=== PATIENT | female | born 1980 | race Caucasian/White ===

== ENCOUNTER 2017-05-09 17:06 | Emergency (ER) | payer OTHER ==
[~2017-05-09] VITALS: Ht 160 cm; Wt 79.7 kg
[~2017-05-09 17:06] MED LIST: AUGMENTIN875 MG PO; CELEXA10 MG PO; XANAX0.25 MG PO
[2017-05-09 18:53] VITALS: BP 115/67
== END 2017-05-09 18:55 | disposition home or self-care (01) ==
LOC: EME 17:06
DX: R06.02 Shortness of breath (principal); O26.893 Other specified pregnancy related conditions, third trimester; Z3A.33 33 weeks gestation of pregnancy
CPT/HCPCS: 99281; 99283

== ENCOUNTER 2017-06-20 04:42 | Outpatient (CLI) | payer OTHER ==
[~2017-06-20] VITALS: Ht 160 cm; Wt 81.0 kg
[2017-06-20 05:05] VITALS: BP 113/78
[2017-06-20 06:59] VITALS: BP 106/71
[2017-06-20] MEDS ORDERED: PRENATAL TABLE1 EAC3 PO (07:06)
[2017-06-20 08:17] VITALS: BP 104/61
[2017-06-21] MEDS ORDERED: IBUPROFEN800 MG PO (20:20)
== END 2017-06-20 09:47 | disposition home or self-care (01) ==
LOC: LDRP-OP 04:42 → 2WEST 04:43 → LDRP-OP 07-26 07:00
DX: O47.1 False labor at or after 37 completed weeks of gestation (principal); Z3A.39 39 weeks gestation of pregnancy; O99.820 Streptococcus B carrier state complicating pregnancy; O09.513 Supervision of elderly primigravida, third trimester
CPT/HCPCS: 59025; G0378

== ENCOUNTER 2017-06-20 23:48 | Inpatient (IN) | payer OTHER ==
[~2017-06-20] VITALS: Ht 162.6 cm; Wt 83.4 kg
[~2017-06-20 23:48] MED LIST changes: +PRENATAL TABLE1 EAC3 PO
[2017-06-21] VITALS (33 sets, daily range): BP systolic 92–129; BP diastolic 53–80
[2017-06-21 09:38] LABS: EOSINOPHIL (%) 0.3 % (0-5); HEMATOCRIT 35.7 % (36.0-46.0); IMMATURE GRANULOCYTE (%) 0.7 % (0.0-0.7); IMMATURE GRANULOCYTE COUNT 0.1 K/uL; INSTRUMENT ABS NEUTROPHIL CT 8.9 K/uL; LYMPHOCYTE COUNT 1.2 K/uL (1.0-2.8); MCH 31.4 PG (29.0-34.0); MCHC 33.9 G/DL (30.0-36.0); MCV 92.7 FL (83-99); MONOCYTE (%) 9.3 % (3-12); MONOCYTE COUNT 1.1 K/uL (0-0.8); NEUTROPHIL (%) 79.1 % (45-76); NEUTROPHIL COUNT 8.9 K/uL (1.8-6.4); PLATELET COUNT 172 K/uL (156-360); RBC DIS.WIDTH-CV 13.8 % (11.8-14.6); RBC DIS.WIDTH-SD 46.5 % (39-53); RED BLOOD COUNT 3.85 M/uL (3.80-5.20); WHITE BLOOD COUNT 11.2 K/uL (4.1-10.2)
[2017-06-21] MEDS ORDERED: IBUPROFEN800 MG PO (20:20)
[2017-06-22 14:47] VITALS: BP 102/59
[2017-06-23 07:10] VITALS: BP 100/56
== END 2017-06-23 13:11 | disposition home or self-care (01) | DRG 775 ==
LOC: LDRP-OP 23:48 → 2WEST 23:49 → LDRP-OP 07-26 09:58
PROVIDERS: Midwife
PROC: 3E033VJ Introduction of Other Hormone into Peripheral Vein, Percutaneous Approach (ICD-10-PCS; principal; 2017-06-21)
PROC: 0UQGXZZ Repair Vagina, External Approach (ICD-10-PCS; principal; 2017-06-21)
PROC: 3E0S3BZ Introduction of Anesthetic Agent into Epidural Space, Percutaneous Approach (ICD-10-PCS; principal; 2017-06-21)
PROC: 10E0XZZ Delivery of Products of Conception, External Approach (ICD-10-PCS; principal; 2017-06-21)
PROC: 00HU33Z Insertion of Infusion Device into Spinal Canal, Percutaneous Approach (ICD-10-PCS; principal; 2017-06-21)
PROC: 10907ZC Drainage of Amniotic Fluid, Therapeutic from Products of Conception, Via Natural or Artificial Opening (ICD-10-PCS; principal; 2017-06-21)
DX: O71.4 Obstetric high vaginal laceration alone (principal); O99.824 Streptococcus B carrier state complicating childbirth; O63.9 Long labor, unspecified; Z37.0 Single live birth; Z3A.39 39 weeks gestation of pregnancy; O69.1XX0 Labor and delivery complicated by cord around neck, with compression, not applicable or unspecified
CPT/HCPCS: 85025; G0378; J2540; J3010; J7120; Q0169